=== PATIENT | male | born 1955 | race African-American/Black ===

== ENCOUNTER 2019-02-28 09:10 | Observation (INO) ==
[2019-02-28 10:07] LABS: Basophils % 0.7 % (0.0-0.8); Eosinophils # 0.4 10*3/uL (0.0-0.87); Eosinophils % 9.2 % (0.00-10.9); Hematocrit 37.4 VOL% (42.0-52.0); Hemoglobin 11.6 GM/DL (14.0-18.0); Immature Granulocytes % 0.2 %; Immature Granulocytes Absolute 0.01 #; Lymphocytes # 0.9 10*3/uL (1.4-4.0); Lymphocytes % 18.7 % (21.2-54.2); Mean Corpuscular Volume 94.9 FL (87-102); Mean Platelet Volume 11.9 FL (9.6-12.0); Monocytes % 9.6 % (1.7-12.7); Neutrophils % 61.6 % (38.7-73.9); Platelet Count 111 T/CUMM (130-400); Red Blood Count 3.94 MC/CUMM (3.8-5.5); Red Cell Distribution Width 14.1 % (9.3-17.3); White Blood Count 4.6 T/CUMM (4-12)
[2019-02-28 10:22] LABS: INR 1.1; PT Patient Result 11.4 SECS; Partial Thromboplastin Time 24.8 SECS (0-40)
[2019-02-28 10:26] LABS: Alanine Aminotransferase 46 U/L (16-61); Albumin 2.6 G/DL (3.4-5.0); Alkaline Phosphatase 91 U/L (45-117); Aspartate Amino Transferase 50 U/L (0-37); Blood Urea Nitrogen 82 MG/DL (7-18); Calcium 9.1 MG/DL (8.5-10.1); Glucose 131 MG/DL (74-106); Osmolality,Calculated 314.7 MOS/KG (273-304); Total Protein 7.6 G/DL (6.4-8.3); Troponin I < 0.015 NG/ML (0.00-0.045)
[2019-02-28] MEDS ORDERED: ORPHENADRINE 60 MG/2 ML VIAL IV STA (10:37)
[2019-02-28 11:18] LABS: Apearance,Urine CLEAR (Clear); Bacteria,Urine Occasional /HPF (Few); Bilirubin,Urine Negative (Negative); Blood, Urine Small mg/dL (Negative); Glucose,Urine (UA) 50 mg/dL (Negative); Ketones,Urine Negative (Negative); Nitrite,Urine Negative (Negative); Protein,Urine 100 MG/DL; RBC,Urine <1 /HPF (0-4); Urine Color Straw (Yellow); Urine Urobilinogen < 2.0 EU/DL (0.2-1.0); WBC,Urine 1 /HPF (0-6)
[2019-02-28] MEDS ORDERED: LABETALOL 20 MG/4 ML SYRINGE IV PRN (11:24)
[2019-02-28] MEDS ORDERED: SODIUM CHLORIDE 0.9% 1,000 ML IV SCH (11:30)
[2019-02-28 11:34] LABS: Barbiturates Screen,Urine Negative (Negative); Benzodiazepines Screen,Urine Negative (Negative); Cannabinoid Screen,Urine Negative (Negative); Opiate Screen,Urine Negative (Negative); Phencyclidine Screen,Urine Negative (Negative)
[2019-02-28 11:57] LABS: Risk Ratio 2.29; VLDL CHOLESTEROL 21.8 MG/DL
[2019-02-28] MEDS: ASPIRIN 325 MG TABLET PO SCH (13:15)
[2019-02-28] MEDS ORDERED: PNEUMOCOCCAL VACCINE (13 VALENT) 0.5 ML SYRINGE IM ONE (19:47)
[2019-02-28] MEDS: ATORVASTATIN 40 MG TABLET PO SCH (21:34)
[2019-03-01 04:46] LABS: Basophils % 0.7 % (0.0-0.8); Eosinophils # 0.8 10*3/uL (0.0-0.87); Eosinophils % 12.7 % (0.00-10.9); Hematocrit 32.5 VOL% (42.0-52.0); Hemoglobin 10.2 GM/DL (14.0-18.0); Immature Granulocytes % 0.2 %; Immature Granulocytes Absolute 0.01 #; Lymphocytes # 1.6 10*3/uL (1.4-4.0); Lymphocytes % 25.4 % (21.2-54.2); Mean Corpuscular HGB Conc 31.4 GM/DL (32-36); Mean Corpuscular Volume 94.8 FL (87-102); Mean Platelet Volume 12.5 FL (9.6-12.0); Monocytes % 10.3 % (1.7-12.7); Neutrophils % 50.7 % (38.7-73.9); Platelet Count 127 T/CUMM (130-400); Red Blood Count 3.43 MC/CUMM (3.8-5.5); Red Cell Distribution Width 14.3 % (9.3-17.3); White Blood Count 6.1 T/CUMM (4-12)
[2019-03-01 05:06] LABS: Calcium 8.7 MG/DL (8.5-10.1); Osmolality,Calculated 303.1 MOS/KG (273-304)
[2019-03-01 05:14] LABS: Band Neutrophils 3 % (0-10); Eosinophils 15 % (0-10); Hypochromasia 2+; Lymphocytes 24 % (20-55); Platelet Estimate Decreased; Segmented Neutrophils 51 % (50-85); Total Cells Counted 100
[2019-03-01] MEDS: ASPIRIN 325 MG TABLET PO SCH (11:24)
[2019-03-01] MEDS ORDERED: ASPIRIN EC 81 MG TABLET PO SCH (17:53)
[2019-03-01] MEDS: ATORVASTATIN 40 MG TABLET PO SCH (21:40)
[2019-03-02 04:39] LABS: Basophils # 0.1 10*3/uL (0.0-0.2); Basophils % 0.8 % (0.0-0.8); Eosinophils # 1.1 10*3/uL (0.0-0.87); Eosinophils % 17.6 % (0.00-10.9); Hematocrit 33.1 VOL% (42.0-52.0); Hemoglobin 10.3 GM/DL (14.0-18.0); Immature Granulocytes % 1.1 %; Immature Granulocytes Absolute 0.07 #; Lymphocytes # 1.7 10*3/uL (1.4-4.0); Mean Corpuscular HGB Conc 31.1 GM/DL (32-36); Mean Corpuscular Volume 96.8 FL (87-102); Mean Platelet Volume 11.8 FL (9.6-12.0); Monocytes % 9.9 % (1.7-12.7); Neutrophils % 44.6 % (38.7-73.9); Platelet Count 120 T/CUMM (130-400); Red Blood Count 3.42 MC/CUMM (3.8-5.5); Red Cell Distribution Width 14.3 % (9.3-17.3); White Blood Count 6.4 T/CUMM (4-12)
[2019-03-02 05:07] LABS: Calcium 8.7 MG/DL (8.5-10.1); Osmolality,Calculated 308.1 MOS/KG (273-304)
[2019-03-02 05:17] LABS: Band Neutrophils 1 % (0-10); Eosinophils 20 % (0-10); Lymphocytes 24 % (20-55); Myelocytes 1 %; Platelet Estimate Decreased; Segmented Neutrophils 50 % (50-85); Total Cells Counted 100
[2019-03-02 08:45] VITALS: BP 167/87
[2019-03-02] MEDS ORDERED: CLOPIDOGREL 75 MG TABLET PO SCH (09:00)
== END 2019-03-02 13:43 | disposition home or self-care (01) ==
LOC: EDBD → N.ED 09:10 → INTOOBSV 11:24 → N.EDINP 11:24 → SUATTDRO 11:24 → N.4E 12:39
PROVIDERS: ADMIT Emergency Medicine; ATTEND Hospitalist